=== PATIENT | female | born 1945 | race Caucasian/White ===

== ENCOUNTER 2016-10-31 16:07 | Emergency (ER) | payer OTHER ==
[2016-10-31 16:20] VITALS: TEMP 98.4; BMI 27.4
--- NOTE | 2016-10-31 17:19 | PDOC ---
History of Present Illness - General History Source: Patient Exam Limitations: No Limitations - History of Present Illness Initial Comments: The patient is a 70 yo F with a PMHx significant for prior ear tubs who presents with dizziness since 1pm this afternoon. She states she felt like the room was spinning around her which caused her to fall. She states she was able to brace herself with her arms. She denies head trauma and LOC. 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 She states her doctor a few years ago recommend mastoid surgery which she was unable to do for social reasons. The patient states when she turns her head she gets dizzy. She states she sees Dr. Hurst for ENT. The patient also notes associated nausea. The patient states the dizziness is only exacerbated by moving her head not moving her eyes. She also endorses a sharp pain near her ear at 1pm that lasted a few minutes that has since resolved. The patient denies blood in her vomit. She also notes a sudden onset of chills when her symptoms presented. <Reena Holley - Last Filed: 10/31/16 18:01> - General History Source: Patient Exam Limitations: No Limitations <Erica Johnson - Last Filed: 11/01/16 21:07> - General Chief Complaint: Syncope/Near Syncope Stated Complaint: DIZZINESS Time Seen by Provider: 10/31/16 17:04 Past History <Reena Holley - Last Filed: 10/31/16 18:01> - Past Medical History Anemia: No Asthma: No Cancer: No Cardiac Disorders: No CVA: No COPD: No CHF: No Dementia: No Diabetes: No GI Disorders: No Disorders: No HTN: No Hypercholesterolemia: No Liver Disease: No Seizures: No Thyroid Disease: No Other medical history: DENIES. - Surgical History Abdominal Surgery: No Appendectomy: No Cardiac Surgery: No Cholecystectomy: No Lung Surgery: No Neurologic Surgery: No Orthopedic Surgery: Yes (s/p right carpal tunnel release 1999/R KNEE ARTHROSCPY ) - Immunization History Td Vaccination: (09/16/2008) TDAP Vaccination: (02/09/2016) - Psycho/Social/Smoking Cessation Hx Anxiety: No Suicidal Ideation: No Smoking History: Never smoked Have you smoked in the past 12 months: No Hx Alcohol Use: No Drug/Substance Use Hx: No Substance Use Type: None Hx Substance Use Treatment: No <AlexErica - Last Filed: 11/01/16 21:07> - Past Medical History Allergies/Adverse Reactions: Allergies Allergy/AdvReac Type Severity Reaction Status Date / Time codeine [Codeine] AdvReac Intermediate Vomiting Verified 10/31/16 16:15 ENVIRONMENTAL Allergy Intermediate NASAL Uncoded 10/31/16 16:15 CONGESTION/SNEEZING GOLDENROD Allergy Uncoded 10/31/16 16:15 RAGWEED Allergy Uncoded 10/31/16 16:15 Home Medications: Ambulatory Orders FA/Mv,Ca,Iron,Min/Lycopene/Lut [Centrum Tablet] 1 each PO DAILY 07/17/14 Glucosamine HCl/Chondr Whitt A Na [Osteo Bi-Flex Caplet] 1 each PO DAILY 07/17/14 Ascorbic Acid [Vitamin C] 250 mg PO DAILY 02/09/16 Naproxen Sodium [Aleve] 440 mg PO DAILY 02/09/16 Vit C/Vit E/Lutein/Min/[place]-3 [Ocuvite Softgel] 1 each PO DAILY 02/09/16 Amoxicillin/Potassium Clav [Augmentin 875-125 Tablet] 1 each PO BID #14 tablet 10/31/16 Meclizine HCl [Antivert -] 25 mg PO TID #21 tablet 10/31/16 Review of Systems - Review of Systems Able to Perform ROS?: Yes Comments:: GENERAL/CONSTITUTIONAL: No fever or chills. No weakness. HEAD, EYES, EARS, NOSE AND THROAT: No change in vision. No ear pain or discharge. No sore throat. CARDIOVASCULAR: No chest pain or shortness of breath. RESPIRATORY: No cough, wheezing, or hemoptysis. GASTROINTESTINAL: No nausea, vomiting, diarrhea or constipation. GENITOURINARY: No dysuria, frequency, or change in urination. MUSCULOSKELETAL: No joint or muscle swelling or pain. No neck or back pain. SKIN: No rash NEUROLOGIC: +vertigo No headache, loss of consciousness, or change in strength/sensation. ALLERGIC/IMMUNOLOGIC: No hives or skin allergy. <Reena Holley - Last Filed: 10/31/16 18:01> *Physical Exam - Vital Signs Last Vital Signs Temp Pulse Resp BP Pulse Ox 98.4 F 87 19 148/112 98 10/31/16 16:16 10/31/16 16:16 10/31/16 16:16 10/31/16 16:16 10/31/16 16:50 - Physical Exam Comments: GENERAL: Awake, alert, and fully oriented, in no acute distress HEAD: No signs of trauma EYES: PERRLA, EOMI, sclera anicteric, conjunctiva clear ENT: fluid behind R tympanic membrane, hearing grossly normal, nares patent, oropharynx clear without exudates. Moist mucosa NECK: Normal ROM, supple, no lymphadenopathy, JVD, or masses LUNGS: Breath sounds equal, clear to auscultation bilaterally. No wheezes, and no crackles HEART: Regular rate and rhythm, normal S1 and S2, no murmurs, rubs or gallops ABDOMEN: Soft, nontender, normoactive bowel sounds. No guarding, no rebound. No masses EXTREMITIES: Normal range of motion, no edema. No clubbing or cyanosis. No cords, erythema, or tenderness NEUROLOGICAL: Cranial nerves II through XII grossly intact. Normal speech, normal gait SKIN: Warm, Dry, normal turgor, no rashes or lesions noted. <Reena Holley - Last Filed: 10/31/16 18:01> - Vital Signs Last Vital Signs Temp Pulse Resp BP Pulse Ox 98.4 F 87 19 148/112 98 10/31/16 16:16 10/31/16 16:16 10/31/16 16:16 10/31/16 16:16 10/31/16 16:50 <Erica Johnson - Last Filed: 11/01/16 21:07> Heart Score/ECG Review #1 ECG reviewed & interpreted by me at: 18:23 General ECG Interpretation: Sinus Rhythm, Normal Rate, Normal Intervals, No acute ischemic changes <Erica Johnson - Last Filed: 11/01/16 21:07> ED Treatment Course - LABORATORY CBC & Chemistry Diagram: 10/31/16 17:35 10/31/16 17:35 - ADDITIONAL ORDERS Additional order review: 10/31/16 17:35 RBC 4.36 MCV 88.8 MCHC 34.0 RDW 13.3 MPV 8.5 Neutrophils % 82.5 Lymphocytes % 11.9 Monocytes % 4.2 Eosinophils % 0.7 Basophils % 0.7 <Reena Holley - Last Filed: 10/31/16 18:01> - LABORATORY CBC & Chemistry Diagram: 10/31/16 17:35 10/31/16 17:35 <Erica Johnson - Last Filed: 11/01/16 21:07> Medical Decision Making - Medical Decision Making 10/31/16 17:19 A portion of this note was documented by scribe services under my direction. I have reviewed the details of the note, within reason, and agree with the documentation with the following case summary and management plan written by me. Nursing documentation reviewed and incorporated into medical decision making This is 70 yo F with a history of a "bad right ear" Pt states she has had these issues chronically and has intermittently required tympanostomy tubes Was seen by Dr Hurst in the office He noted fluid behind the ear, placed a drain Her symptoms resolved Today, she developed right ear pain Symptoms are similar to prior (ear pain and vertigo) NEURO: No nystagmus (+) fluid behind right TM Mental status: The patient is oriented x3. Cranial nerves: Cranial nerves II through XII are intact Motor: The upper extremities are 5 over 5 in all muscle groups. The lower extremities are 5 over 5 in all muscle groups. Sensation: Sensation is intact to light touch throughout. Cerebellar: Oqyogb-gugewi-kfiv is normal in both upper extremities. Heel-knee- ramires is normal in both lower extremities. Reflexes: 2+ and symmetric in the upper and lower extremities. Gait: Normal. DD: peripheral vertigo due to chronic middle ear condition, posterior circulation pathology Laboratory Tests 10/31/16 17:35 WBC 7.3 Hgb 13.2 Hct 38.7 Plt Count 226 Neutrophils % 82.5 Lymphocytes % 11.9 Given pt sym 10/31/16 18:[address] Alonzo covering Dr Hurst 10/31/16 18:21 Pt can be discharged to home Pt should be discharged on Antibiotics, and Meclizine Pt should follow up with Dr Hurst in the office Will give Meclizine and re assess vertigo 10/31/16 18:28 10/31/16 18:54 <Erica Johnson - Last Filed: 11/01/16 21:07> *DC/Admit/Observation/Transfer - Attestations Scribe Attestion: Documentation prepared by Reena Holley, acting as medical sales consultant for Erica Johnson MD/DO. <Reena Holley - Last Filed: 10/31/16 18:01> - Discharge Dispostion Admit: No <Erica Johnson - Last Filed: 11/01/16 21:07> Diagnosis at time of Disposition: Vertigo, Fluid collection of middle ear - Discharge Dispostion Disposition: HOME Condition at time of disposition: Stable - Prescriptions Prescriptions: Meclizine HCl [Antivert -] 25 mg PO TID #21 tablet Amoxicillin/Potassium Clav [Augmentin 875-125 Tablet] 1 each PO BID #14 tablet - Referrals Referrals: Sara Pathak MD [Primary Care Provider] - - Patient Instructions Printed Discharge Instructions: Middle Ear Infection, Ear Infections (Middle Ear) (Alternative Therapy), DI for Vertigo Additional Instructions: Ms. Lambert Thank you for coming to the ER today Please take the meclizine for vertigo as prescribed Please take augmentin as prescribed Please call Dr Hurst's office for follow up
[2016-10-31 17:49] LABS: BASOPHIL 0.7 % (0-2.0); EOSINOPHIL 0.7 % (0-4.5); MCH 30.2 pg (25.7-33.7); MEAN CELL VOLUME 88.8 fl (80-96); MEAN PLT VOLUME 8.5 fl (7.5-11.1); NEUTROPHILS 82.5 % (42.8-82.8); PLATELET COUNT 226 K/MM3 (134-434); RDW 13.3 % (11.6-15.6); WHITE BLOOD COUNT 7.3 K/mm3 (4.0-10.0)
[2016-10-31 18:21] LABS: ALBUMIN 4.1 g/dl (3.4-5.0); ANION GAP 9 (8-16); BILIRUBIN,TOTAL 0.6 mg/dL (0.2-1.0); CALCIUM 10.1 mg/dL (8.5-10.1); CO2 28 mmol/L (21-32); CREATININE 0.9 mg/dL (0.55-1.02); GLUCOSE,RANDOM 111 mg/dL (74-106); SGOT/AST 19 U/L (15-37); SGPT/ALT 22 U/L (12-78); TOT PROT 7.1 g/dl (6.4-8.2)
[2016-10-31 18:23] LABS: ALK PHOS 82 U/L (45-117); CPK 104 IU/L (26-192); TROPONIN I < 0.02 ng/ml (0.00-0.05)
[2016-10-31] MEDS ORDERED: MECLIZINE HCL 25 MG TABLET (FP) PO ONE (18:28)
[2016-10-31] MEDS ORDERED: MECLIZINE HCL 25 MG TABLET (FP) ONE (18:33)
[2016-10-31 18:40] VITALS: BP 119/71; PULSE 79
--- NOTE | 2016-11-02 21:44 | EKG ---
Test Reason : Blood Pressure : / mmHG Vent. Rate : 065 BPM Atrial Rate : 065 BPM P-R Int : 176 ms QRS Dur : 088 ms QT Int : 398 ms P-R-T Axes : 034 004 004 degrees QTc Int : 413 ms NORMAL SINUS RHYTHM WHEN COMPARED WITH ECG OF 08-APR-2001 10:56, NONSPECIFIC T WAVE ABNORMALITY NOW EVIDENT IN ANTERIOR LEADS , MAY BE DUE TO LEAD PLACEMENT Confirmed by LETY HAGAN, RASHMI ([id number]) on 11/02/2016 9:43:59 PM Referred By: Confirmed By:RASHMI DAVIDSON MD
== END 2016-10-31 19:34 | disposition home or self-care (01) ==
LOC: JER 16:07
DX: H81.391 Other peripheral vertigo, right ear (principal)
CPT/HCPCS: 36415; 80053; 84484; 85025; 93005; 93010; 99285-25

== ENCOUNTER 2017-10-18 19:51 | Emergency (ER) | payer OTHER ==
[2017-10-18 20:00] VITALS: BP 140/85; PULSE 96; TEMP 98.9; BMI 27.4
[2017-10-18] MEDS ORDERED: CEPHALEXIN MONOHYDRATE 250 MG CAPSULE (FP) PO ONE (20:21)
--- NOTE | 2017-10-18 20:21 | PDOC ---
*Physical Exam - Vital Signs Last Vital Signs Temp Pulse Resp BP Pulse Ox 98.9 F 96 H 15 140/85 98 10/18/17 19:53 10/18/17 19:53 10/18/17 19:53 10/18/17 19:53 10/18/17 19:53 *DC/Admit/Observation/Transfer - Discharge Dispostion Condition at time of disposition: Good - Referrals Referrals: Sara Pathak MD [Primary Care Provider] - - Patient Instructions - Post Discharge Activity
--- NOTE | 2017-10-18 20:21 | PDOC ---
History of Present Illness - General History Source: Patient, Old Records Exam Limitations: No Limitations - History of Present Illness Initial Comments: 10/18/17 20:34 Patient is a 71 year old female with no significant past medical history who presents to the ED with complaints of left hand pain, s/p injury that occured 4 hours prior to ED arrival. Patient reports breaking apart an old toilet with a sledgehammer when she cut her left hand while attempting to catch a falling broken piece. She reports applying peroxide water and a bandaid to the injury before being advised by her friend to come into the ED for further evaluation. Denies chest pain, Sob. Denies nausea, vomiting. Denies contact with sick individuals, out of state travelling. Denies fevers, chills. Denies any other symptoms. Allergies: codeine, Hermann, Ragweed Social history: Lives with . No smoking. No alcohol. No illicit drugs. Surgical history: s/p right carpal tunnel release 1999/R KNEE ARTHROSCOPY 2010 PMD: Dr. Sara Pathak <Jayy Talbot - Last Filed: 10/18/17 20:29> <Maite Ricketts - Last Filed: 10/19/17 01:11> - General Chief Complaint: Laceration Stated Complaint: LEFT PALM LACERATION Time Seen by Provider: 10/18/17 20:13 Past History <Jayy Talbot - Last Filed: 10/18/17 20:29> - Past Medical History Anemia: No Asthma: No Cancer: No Cardiac Disorders: No CVA: No COPD: No CHF: No Dementia: No Diabetes: No GI Disorders: No Disorders: No HTN: No Hypercholesterolemia: No Liver Disease: No Seizures: No Thyroid Disease: No - Surgical History Abdominal Surgery: No Appendectomy: No Cardiac Surgery: No Cholecystectomy: No Lung Surgery: No Neurologic Surgery: No Orthopedic Surgery: Yes (s/p right carpal tunnel release 1999/R KNEE ARTHROSCPY ) - Immunization History Td Vaccination: (09/16/2008) TDAP Vaccination: Yes (02/09/2016) - Suicide/Smoking/Psychosocial Hx Smoking History: Never smoked Have you smoked in the past 12 months: No Hx Alcohol Use: No Drug/Substance Use Hx: No Substance Use Type: None Hx Substance Use Treatment: No <Maite Ricketts - Last Filed: 10/19/17 01:11> - Past Medical History Allergies/Adverse Reactions: Allergies Allergy/AdvReac Type Severity Reaction Status Date / Time codeine [Codeine] AdvReac Intermediate Vomiting Verified 10/18/17 19:55 ENVIRONMENTAL Allergy Intermediate NASAL Uncoded 10/18/17 19:55 CONGESTION/SNEEZING GOLDENROD Allergy Uncoded 10/18/17 19:55 RAGWEED Allergy Uncoded 10/18/17 19:55 Home Medications: Ambulatory Orders FA/Mv,Ca,Iron,Min/Lycopene/Lut [Centrum Tablet] 1 each PO DAILY 07/17/14 Glucosamine/Chondr Whitt A Sod [Osteo Bi-Flex Caplet] 1 each PO DAILY 07/17/14 Naproxen Sodium [Aleve] 440 mg PO DAILY 02/09/16 Vit C/Vit E/Lutein/Min/[place]-3 [Ocuvite Softgel] 1 each PO DAILY 02/09/16 Cephalexin Monohydrate [Keflex -] 250 mg PO Q8H #9 capsule 10/18/17 Review of Systems - Review of Systems Able to Perform ROS?: Yes Comments:: 10/18/17 20:34 GENERAL/CONSTITUTIONAL: No fever or chills. No weakness. HEAD, EYES, EARS, NOSE AND THROAT: No change in vision. No ear pain or discharge. No sore throat. CARDIOVASCULAR: No chest pain or shortness of breath. RESPIRATORY: No cough, wheezing, or hemoptysis. GASTROINTESTINAL: No nausea, vomiting, diarrhea or constipation. GENITOURINARY: No dysuria, frequency, or change in urination. MUSCULOSKELETAL: +Left hand pain. No joint or muscle swelling or pain. No neck or back pain. SKIN: No rash NEUROLOGIC: No headache, vertigo, loss of consciousness, or change in strength/ sensation. ENDOCRINE: No increased thirst. No abnormal weight change. HEMATOLOGIC/LYMPHATIC: No anemia, easy bleeding, or history of blood clots. ALLERGIC/IMMUNOLOGIC: No hives or skin allergy. <Jayy Talbot - Last Filed: 10/18/17 20:29> *Physical Exam - Vital Signs Last Vital Signs Temp Pulse Resp BP Pulse Ox 98.9 F 96 H 15 140/85 98 10/18/17 19:53 10/18/17 19:53 10/18/17 19:53 10/18/17 19:53 10/18/17 19:53 - Physical Exam Comments: 10/18/17 20:34 GENERAL: Awake, alert, and fully oriented, in no acute distress HEAD: No signs of trauma EYES: PERRLA, EOMI, sclera anicteric, conjunctiva clear ENT: Auricles normal inspection, hearing grossly normal, nares patent, oropharynx clear without exudates. Moist mucosa NECK: Normal ROM, supple, no lymphadenopathy, JVD, or masses LUNGS: Breath sounds equal, clear to auscultation bilaterally. No wheezes, and no crackles HEART: Regular rate and rhythm, normal S1 and S2, no murmurs, rubs or gallops ABDOMEN: Soft, nontender, normoactive bowel sounds. No guarding, no rebound. No masses EXTREMITIES: +1 cm square abrasion to the palmar aspect of the left hand Normal range of motion, no edema. No clubbing or cyanosis. No cords, erythema, NEUROLOGICAL: Cranial nerves II through XII grossly intact. Normal speech, normal gait SKIN: Warm, Dry, normal turgor, no rashes or lesions noted. <Jayy Talbot - Last Filed: 10/18/17 20:29> - Vital Signs Last Vital Signs Temp Pulse Resp BP Pulse Ox 98.9 F 96 H 15 140/85 98 10/18/17 19:53 10/18/17 19:53 10/18/17 19:53 10/18/17 19:53 10/18/17 19:53 <Maite Ricketts - Last Filed: 10/19/17 01:11> ED Treatment Course - Medications Given in the ED: ED Medications Discontinued Medications Generic Name Dose Route Start Last Admin Trade Name Freq PRN Reason Stop Dose Admin Cephalexin HCl 250 mg 10/18/17 20:21 10/18/17 20:25 Keflex - PO 10/18/17 20:22 250 mg ONCE ONE Administration <Jayy Talbot - Last Filed: 10/18/17 20:29> Medical Decision Making - Medical Decision Making 10/19/17 01:10 Pt with abrasion to hand. Washed and dressed with surgicel. Home with keflex. FROM of all fingers and thumb; no swelling of the hand and no need for XRAYS. <Maite Ricketts - Last Filed: 10/19/17 01:11> *DC/Admit/Observation/Transfer - Attestations Scribe Attestion: 10/18/17 20:35 Documentation prepared by Jayy Talbot, acting as quality engineer medical device for Maite Ricketts MD. <Jayy Talbot - Last Filed: 10/18/17 20:29> - Discharge Dispostion Decision to Admit order: No <Maite Ricketts - Last Filed: 10/19/17 01:11> Diagnosis at time of Disposition: Abrasion - Discharge Dispostion Disposition: HOME Condition at time of disposition: Good - Prescriptions Prescriptions: Cephalexin Monohydrate [Keflex -] 250 mg PO Q8H #9 capsule - Referrals Referrals: Sara Pathak MD [Primary Care Provider] - - Patient Instructions Printed Discharge Instructions: DI for Abrasion - Post Discharge Activity
[2017-10-18] MEDS ORDERED: CEPHALEXIN MONOHYDRATE 250 MG CAPSULE (FP) ONE (20:24)
== END 2017-10-18 20:30 | disposition home or self-care (01) ==
LOC: FER 19:51
DX: S60.512A Abrasion of left hand, initial encounter (principal); W26.8XXA Contact with other sharp object(s), not elsewhere classified, initial encounter; Y93.89 Activity, other specified; Y92.9 Unspecified place or not applicable
CPT/HCPCS: 99281-25

== ENCOUNTER 2018-02-19 16:39 | Emergency (ER) | payer OTHER ==
[2018-02-19 17:24] LABS: URINE APPEARANCE Clear; URINE BILIRUBIN Negative (NEGATIVE); URINE COLOR Yellow; URINE GLUCOSE (UA) Negative (NEGATIVE); URINE KETONE Trace (NEGATIVE); URINE LEUK ESTERASE 3+ (NEGATIVE); URINE NITRITE Negative (NEGATIVE); URINE PROTEIN Negative (NEGATIVE); URINE UROBILINOGEN 0.2 (0.2-1.0)
[2018-02-19 17:25] LABS: EPI CELLS FEW /HPF; URINE BACTERIA 1+ /hpf (NEGATIVE); URINE RBC 0-2 /hpf (0-3)
[2018-02-19 17:38] VITALS: BP 129/73; PULSE 89; TEMP 98.4; BMI 30.2
[2018-02-19] MEDS ORDERED: IBUPROFEN 600 MG TABLET (FP) PO ONE ×2 (18:23→18:45)
--- NOTE | 2018-02-19 18:26 | PDOC ---
History of Present Illness - General Chief Complaint: Pain Stated Complaint: LEFT FLANK PAIN Time Seen by Provider: 02/19/18 18:08 - History of Present Illness Initial Comments: Melly Lambert is a 72yo woman with no significant medical history who presents with pleuritic left flank v left lower posterior rib pain following a recent URI. She reports that she started having a cough and chest congestion several days after flying home from vacation over [facility]. She notes that many people on the plane were coughing or appeared to have colds. She tried to treat herself at home for a while but eventually went to see her PMD and was treated with azithromycin, which she finished about 10 days ago. Ms Lambert reports that her symptoms improved significantly after the antibiotics but she has continued to have a cough. Starting a day or two ago, Ms Lambert started to have pain along her left lower ribs, posterior and lateral, when she coughed. The pain has worsened and is now a 10/10 and prevents her from either sitting or standing up completely straight. She tried taking 1000mg acetaminophen every 4-6 hours, which helped for a short period of time only, and she tried excedrin (back pain formula?) without improvement in her pain. She additionally tried wearing a support belt, which did help with her symptoms somewhat. Ms Lambert denies any fevers/chills, nausea/vomiting, change in bowel habits, dysuria, urinary frequency or urgency. Her cough is no longer productive though she was initially producing significant sputum. Past History - Past Medical History Allergies/Adverse Reactions: Allergies Allergy/AdvReac Type Severity Reaction Status Date / Time codeine [Codeine] AdvReac Intermediate Vomiting Verified 02/19/18 17:35 ENVIRONMENTAL Allergy Intermediate NASAL Uncoded 10/18/17 19:55 CONGESTION/SNEEZING GOLDENROD Allergy Uncoded 10/18/17 19:55 RAGWEED Allergy Uncoded 10/18/17 19:55 Home Medications: Ambulatory Orders FA/Mv,Ca,Iron,Min/Lycopene/Lut [Centrum Tablet] 1 each PO DAILY 07/17/14 Glucosamine/Chondr Whitt A Sod [Osteo Bi-Flex Caplet] 1 each PO DAILY 07/17/14 Naproxen Sodium [Aleve] 440 mg PO DAILY 02/09/16 Vit C/Vit E/Lutein/Min/[place]-3 [Ocuvite Softgel] 1 each PO DAILY 02/09/16 Levofloxacin [Levaquin] 750 mg PO DAILY #7 tablet 02/19/18 Anemia: No Asthma: No Cancer: No Cardiac Disorders: No CVA: No COPD: No CHF: No Dementia: No Diabetes: No GI Disorders: No Disorders: No HTN: No Hypercholesterolemia: No Liver Disease: No Seizures: No Thyroid Disease: No - Surgical History Abdominal Surgery: No Appendectomy: No Cardiac Surgery: No Cholecystectomy: No Lung Surgery: No Neurologic Surgery: No Orthopedic Surgery: Yes (s/p right carpal tunnel release 1999/R KNEE ARTHROSCPY ) - Immunization History Td Vaccination: (09/16/2008) TDAP Vaccination: Yes (02/09/2016) - Suicide/Smoking/Psychosocial Hx Smoking History: Never smoked Have you smoked in the past 12 months: No Hx Alcohol Use: No Drug/Substance Use Hx: No Substance Use Type: None Hx Substance Use Treatment: No Review of Systems - Review of Systems Comments:: General: No fevers, no chills, no weight or appetite change, no malaise HEENT: No changes in vision, no changes in hearing, no congestion, no sore throat CV: No chest pain, no palpitations, no LE edema Pulm: No SOB, no wheezing. +cough, recent URI GI: No nausea or vomiting, no change in bowel habits, no melena : No frequency, no urgency, no dysuria Musc: No back pain, no joint swelling, no recent injury Skin: No rash, no lesions, no erythema Endo: No excessive thirst, no heat/cold intolerance Heme: No unusual bruising or bleeding, no swollen glands Neuro: No syncope, no numbness/tingling, no focal weakness Vasc: No claudication Psych: No recent change in mood, no SI or HI *Physical Exam - Vital Signs Last Vital Signs Temp Pulse Resp BP Pulse Ox 98.4 F 89 18 129/73 97 02/19/18 16:40 02/19/18 16:40 02/19/18 16:40 02/19/18 16:40 02/19/18 16:40 - Physical Exam Comments: General: Comfortable, no acute distress HEENT: PERRL, EOMI, MMM, voice normal, normal neck ROM Cards: RRR, no murmur appreciated Pulm: Comfortable on room air, clear to auscultation bilaterally. No wheezing or crackles appreciated. Chest wall: TTP along left posterior and lateral ribs Abd: Soft, nontender, nondistended : No CVA tenderness Ext: Atraumatic. No LE edema. ROM intact. Strength 5/5 and equal bilaterally Vasc: Extremities WWP. Palpable radial and pedal pulses bilaterally Skin: Normal color, no rashes or lesions Neuro: A&Ox3, CN grossly intact, normal speech, motor/sensory grossly intact and symmetric Psych: Mood appropriate to situation Moderate Sedation - Procedure Monitoring Vital Signs: Procedure Monitoring Vital Signs Temperature 98.4 F 02/19/18 16:40 Pulse Rate 89 02/19/18 16:40 Respiratory Rate 18 02/19/18 16:40 Blood Pressure 129/73 02/19/18 16:40 O2 Sat by Pulse Oximetry (%) 97 02/19/18 16:40 ED Treatment Course - ADDITIONAL ORDERS Additional order review: Laboratory Results 02/19/18 16:50 Urine Color Yellow Urine Appearance Clear Urine pH 5.0 Ur Specific [place] 1.025 Urine Protein Negative Urine Glucose (UA) Negative Urine Ketones Trace Urine Blood Negative Urine Nitrite Negative Urine Bilirubin Negative Urine Urobilinogen 0.2 Ur Leukocyte Esterase 3+ H Urine RBC 0-2 Urine WBC 10-20 Ur Epithelial Cells Few Urine Bacteria 1+ Medical Decision Making - Medical Decision Making 02/19/18 18:34 Melly Lambert is an otherwise healthy 72yo woman who presents with pleuritic left flank and posterior rib pain following a recent respiratory infection. - Most likely musculoskeletal due to frequent coughing. However due to persistent cough need to r/o pneumonia. Could also have a fractured rib secondary to coughing, especially given age and gender. Pain in left posterior back and flank could also be kidney stone. Pyelonephritis less likely given no fevers or systemic symptoms. - UA sent on arrival. Appears positive for UTI, will send culture. - Xrays of chest to evaluate for pneumonia. Rib xray to r/o fracture - 600mg ibuprofen for pain 02/19/18 18:57 - Xrays negative for pneumonia or fracture - Will discharge home with levaquin for UTI and empirically for possible pneumonia given continued cough - Discussed home care and follow up with Ms Lambert at length. - Discharge home. Seen and discussed with Dr Knowles. Crystal Parmar PGY1 *DC/Admit/Observation/Transfer Diagnosis at time of Disposition: UTI (urinary tract infection), Rib pain on left side - Discharge Dispostion Disposition: HOME Condition at time of disposition: Stable Decision to Admit order: No - Referrals Referrals: Sara Pathak MD [Primary Care Provider] - - Patient Instructions Printed Discharge Instructions: DI for Rib Contusion, DI for Urinary Tract Infection (UTI) Additional Instructions: Discharge Instructions: You were seen in the emergency department for left rib pain. You were found to have a urinary tract infection and prescribed antibiotics. These antibiotics will also treat any continued respiratory infection that is contributing to your cough. Home Care: - Take the prescribed antibiotic (levofloxacin) daily for 7 days. Take the entire prescription. Do not stop taking the antibiotic early, even if you feel better. - You may take ibuprofen (Motrin or Advil) 600mg every 6-8 hours as needed for pain. You may also take naproxen (Aleve) 220-440mg twice dailiy. Pick only one of these medications; do not take both. Take the medication with food to help prevent upset stomach. - Take the largest breath you can several times per hour. This will fully expand your lungs and help prevent pneumonia - You may use the prescribed albuterol inhaler 2 puffs as needed for coughing or shortness of breath. - You may use lidocaine patches (4% lidocaine) or any pain patch over the infected area. Follow Up: - Make an appointment to see your primary doctor within the next week. Early next week on Thursday or Thursday would be best. - Seek immediate medical care if you have fevers to 101F, severe shortness of breath, worsening cough, increased sputum production, or have any medical emergency. - Post Discharge Activity
--- NOTE | 2018-02-19 18:38 | PDOC ---
Attending Attestation - Resident Resident Name: Crystal Parmar - ED Attending Attestation I have performed the following: I have examined & evaluated the patient, The case was reviewed & discussed with the resident, I agree w/resident's findings & plan, Exceptions are as noted <Nyla Knowles - Last Filed: 02/19/18 18:38> - HPI HPI: 02/19/18 18:42 The patient is a 72 year old female, with no significant PMH, who presents to the emergency department with a viral upper respiratory infection that began approximately a few days after . The patient states she was traveling and came in contact with a lot of passengers who were coughing and sneezing during the flight. The patient states since then she has been coughing and her PCP prescribed her Z-Pack for 10 days, temporary relief was noticed. The patient complains cough has progressively worsened within the past few days and endorses associated symptoms of left lateral posterior pain and dry sputum. Pain is exacerbated with deep inspiration and cough. The patient denies shortness of breath, headache and dizziness. Denies fever, chills, nausea, vomit, diarrhea and constipation. Allergies: codeine Past surgical history: Orthopedic Surgery ( right carpal tunnel release 1999/ KNEE ARTHROSCOPY) Social history: None reported PCP: Sara Pathak Documentation prepared by Josue Pina, acting as auditor medical claims for Nyla Knowles MD. - Physicial Exam PE: 02/19/18 19:09 ADULT EXAM GENERAL: Awake, alert, and fully oriented, in no acute distress HEAD: No signs of trauma ENT: Auricles normal inspection, hearing grossly normal, nares patent, oropharynx clear without exudates. Moist mucosa LUNGS: Breath sounds equal, clear to auscultation bilaterally. No wheezes, and no crackles HEART: Regular rate and rhythm, normal S1 and S2, no murmurs, rubs or gallops ABDOMEN: Soft, nontender, normoactive bowel sounds. No guarding, no rebound. No masses EXTREMITIES: +Left posterior flank tenderness. No step off. Normal range of motion, no edema. No clubbing or cyanosis. No cords, erythema. NEUROLOGICAL: No spinal tenderness. Cranial nerves II through XII grossly intact. Normal speech. SKIN: Warm, Dry, normal turgor, no rashes or lesions noted - Medical Decision Making 02/19/18 19:13 Differential pneumonia vs brochitis vs rib fracture, UTI pylo, upper back strain. Motrin was given for pain control. Chest Xray negative. Prescribed Levaquin and patient will follow up with PCP later next week. <Josue Pina - Last Filed: 02/19/18 19:19>
== END 2018-02-19 19:13 | disposition home or self-care (01) ==
LOC: FER 16:39
DX: N39.0 Urinary tract infection, site not specified (principal); R07.81 Pleurodynia
CPT/HCPCS: 71046-TC-FY; 71101-TC-LT-FY; 81003; 81015; 87086; 87186; 99283-25

== ENCOUNTER 2018-04-05 15:50 | Inpatient (IN) | payer OTHER ==
--- NOTE | 2018-04-05 16:38 | PDOC ---
History of Present Illness - General Chief Complaint: Rectal Bleed Stated Complaint: BLOODY DIARRHEA Time Seen by Provider: 04/05/18 16:16 - History of Present Illness Initial Comments: 04/05/18 16:54 72 years old no significant past medical history takes Aleve daily for chronic knee pain presents to the ED with one-week history of hematochezia. Patient describes between 1-4 episodes a day starting last Thursday of bright red bloody bowel movements associated with crampy abdominal discomfort and palpitations fatigue weakness and dizziness. Started taking Pepto-Bismol on Thursday today stool was black. Symptoms are moderate persistent constant no exacerbating or alleviating factors. Past History - Past Medical History Allergies/Adverse Reactions: Allergies Allergy/AdvReac Type Severity Reaction Status Date / Time codeine [Codeine] AdvReac Intermediate Vomiting Verified 04/05/18 16:17 ENVIRONMENTAL Allergy Intermediate NASAL Uncoded 04/05/18 16:17 CONGESTION/SNEEZING GOLDENROD Allergy Uncoded 04/05/18 16:17 RAGWEED Allergy Uncoded 04/05/18 16:17 Home Medications: Ambulatory Orders FA/Mv,Ca,Iron,Min/Lycopene/Lut [Centrum Tablet] 1 each PO DAILY 07/17/14 Glucosamine/Chondr Whitt A Sod [Osteo Bi-Flex Caplet] 1 each PO DAILY 07/17/14 Naproxen Sodium [Aleve] 440 mg PO DAILY 02/09/16 Vit C/Vit E/Lutein/Min/[place]-3 [Ocuvite Softgel] 1 each PO DAILY 02/09/16 Ascorbate Calcium [Vitamin C] 500 mg PO DAILY 04/05/18 Bismuth Subsalicylate [Pepto-Bismol -] 30 ml PO BID 04/05/18 Anemia: No Asthma: No Cancer: No Cardiac Disorders: No CVA: No COPD: No CHF: No Dementia: No Diabetes: No GI Disorders: No Disorders: No HTN: No Hypercholesterolemia: No Liver Disease: No Seizures: No Thyroid Disease: No - Surgical History Abdominal Surgery: No Appendectomy: No Cardiac Surgery: No Cholecystectomy: No Lung Surgery: No Neurologic Surgery: No Orthopedic Surgery: Yes (s/p right carpal tunnel release 1999/R KNEE ARTHROSCPY ) - Immunization History Td Vaccination: (09/16/2008) TDAP Vaccination: Yes (02/09/2016) - Suicide/Smoking/Psychosocial Hx Smoking History: Never smoked Have you smoked in the past 12 months: No Hx Alcohol Use: No Drug/Substance Use Hx: No Substance Use Type: None Hx Substance Use Treatment: No Review of Systems - Review of Systems Comments:: 04/05/18 16:54 ROS: A complete review of 10 out of 10 review of systems is taken and is negative apart from what is previously mentioned below and in the HPI. *Physical Exam - Physical Exam Comments: 04/05/18 16:54 Vitals: Triage Vital signs reviewed General Appearance: no acute distress, well nourished well developed, Head: Atraumatic, Neck: Supple;No Nucal rigidity Chest Wall: Nontender Cardiac: Regular rate and rhythym, no murmurs, no rubs, no gallops, Lungs: Clear to auscultation bilateral, good air movement bilaterally, Abdomen: Soft, non distended, normal bowel sounds, non tender to palpation Rectal: Black tarry stool on rectal exam Extremities: Full range of motion to all extremities, no cyanosis, clubbing, or edema Skin: Warm and dry, no rashes or lesions, no rash, no petechiae Psych: normal mood, normal affect ED Treatment Course - LABORATORY CBC & Chemistry Diagram: 04/05/18 16:50 04/05/18 16:50 Medical Decision Making - Medical Decision Making 04/05/18 19:06 One-week history of bright red blood per rectum drop in hemoglobin from 13.7- 8.7 today was dark and melanotic the patient also had recent Pepto-Bismol use her stool was guaiac negative per the lab Gastroenterology Dr. Ferrara is been consult did he will see the patient in the interim she was written for Protonix bolus and drip We'll admit to medicine for further management. *DC/Admit/Observation/Transfer Diagnosis at time of Disposition: GI bleed Qualifiers: GI bleed type/associated pathology: unspecified gastrointestinal hemorrhage type Qualified Code(s): K92.2 - Gastrointestinal hemorrhage, unspecified - Discharge Dispostion Condition at time of disposition: Good Decision to Admit order: Yes - Referrals Referrals: Sara Pathak MD [Primary Care Provider] - - Patient Instructions - Post Discharge Activity
[2018-04-05 17:12] LABS: BASO % 0.7 % (0-2.0); EOS % 2.6 % (0-4.5); HEMATOCRIT 26.4 % (32.4-45.2); HEMOGLOBIN 8.7 GM/dl (10.7-15.3); LYMPH % 25.2 % (8-40); MCHC 32.9 g/dl (32.0-36.0); MEAN CELL VOLUME 91.2 fl (80-96); MONO % 8.4 % (3.8-10.2); NEUT % 63.1 % (42.8-82.8); PLATELET COUNT 283 K/MM3 (134-434); RBC 2.89 M/mm3 (3.60-5.2); RDW 13.9 % (11.6-15.6); WHITE BLOOD COUNT 6.5 K/mm3 (4.0-10.8)
[2018-04-05 17:21] LABS: ALBUMIN 4.1 g/dl (3.4-5.0); ALK PHOS 68 U/L (45-117); ANION GAP 9 MMOL/L (8-16); BILIRUBIN,TOTAL 0.7 mg/dl (0.2-1); BLOOD UREA NITROGEN 22 mg/dl (7-18); CALCIUM 9.6 mg/dl (8.5-10); CHLORIDE 106 mmol/L (98-107); CO2 23 mmol/L (21-32); CREATININE 0.9 mg/dl (0.55-1.3); GLUCOSE,RANDOM 102 mg/dl (74-106); POTASSIUM 3.9 mmol/L (3.5-5.1); SGOT/AST 19 U/L (15-37); SGPT/ALT 13 U/L (13-61); SODIUM 138 mmol/L (136-145); TOT PROT 6.3 g/dl (6.4-8.2)
[2018-04-05 17:31] LABS: INR 1.04 (0.82-1.09); PROTHROMBIN TIME (PATIENT) 11.6 SEC (10.2-13.0)
[2018-04-05] MEDS ORDERED: PANTOPRAZOLE SODIUM 40 MG VIAL IVPUSH ONE (18:08)
[2018-04-05 18:09] LABS: ACTIVATED PTT 24.4 SECONDS (25.2-36.5)
[2018-04-05] MEDS ORDERED: PANTOPRAZOLE SODIUM 40 MG VIAL ONE (18:16)
[2018-04-05] MEDS: PANTOPRAZOLE SODIUM 80 MG in SODIUM CHLORIDE 100 ML IVPB SCH (18:30)
--- NOTE | 2018-04-05 18:50 | HP ---
CHIEF COMPLAINT: PCP: HISTORY OF PRESENT ILLNESS: Seen and examined; this is a 72 y/o CF with a PMH of NSAID use QD 2/2 OA and no other chronic medical problems; she presents from home with complaints likely representing GIB (suspecting upper). She had several episodes of BRBPR starting on thursday (3-4) and some dyspepsia associated; she developed melena around thursday and was noted to have palpitations, be lightheaded, some transient SOB. She had a colonoscopy >5 yrs ago that she tells me was only significant for hemorrhoids. Interestingly, before the melena started she took pepto bismol on thursday which may have caused change in stool color. Since then she has had no further BRBPR. Aformentioned sx actually improved with time. She was initially hesistant to stay inpatient but after discussion with ER staff and myself is amiable to inpatient treatment and monitoring. GI was called by ER and has assessed the patient; appreciate expert opinion; the patient will require EGD and colonoscopy. She will be monitored on the floor. She initially (last week) was having loose BM with the blood but they have since become more formed. No abdominal pain, consitutional sx, fevers, etc. Recent Travel: None PAST MEDICAL HISTORY: OA, hemorrhoids PAST SURGICAL HISTORY: Colonoscopy Social History: Denies alcohol, tobacco, and drug abuse Family History: Asked and noncontributory Allergies codeine [Codeine] Adverse Reaction (Intermediate, Verified 04/05/18 16:17) Vomiting DIZZINESS ENVIRONMENTAL Allergy (Intermediate, Uncoded 04/05/18 16:17) NASAL CONGESTION/SNEEZING GOLDENROD Allergy (Uncoded 04/05/18 16:17) RAGWEED Allergy (Uncoded 04/05/18 16:17) HOME MEDICATIONS: Home Medications Medication Instructions Recorded FA/Mv,Ca,Iron,Min/Lycopene/Lut 1 each PO DAILY 07/17/14 [Centrum Tablet] Glucosamine/Chondr Whitt A Sod [Osteo 1 each PO DAILY 07/17/14 Bi-Flex Caplet] Naproxen Sodium [Aleve] 440 mg PO DAILY 02/09/16 Vit C/Vit E/Lutein/Min/[place]-3 1 each PO DAILY 02/09/16 [Ocuvite Softgel] Ascorbate Calcium [Vitamin C] 500 mg PO DAILY 04/05/18 Bismuth Subsalicylate 30 ml PO BID 04/05/18 [Pepto-Bismol -] REVIEW OF SYSTEMS 10 sys ROS done and negative aside from HPI PHYSICAL EXAMINATION Vital Signs - 24 hr 04/05/18 16:00 Temperature 98.8 F Pulse Rate 100 H Respiratory 18 Rate Blood Pressure 116/78 O2 Sat by Pulse 100 Oximetry (%) GENERAL: Awake, alert, and fully oriented, in no acute distress. HEAD: Normal with no signs of trauma. EYES: Pupils equal, round and reactive to light, extraocular movements intact EARS, NOSE, THROAT: Ears normal, nares patent NECK: Normal range of motion, supple without lymphadenopathy, JVD, or masses. LUNGS: Breath sounds equal, clear to auscultation bilaterally. No wheezes, and no crackles HEART: Regular rate and rhythm, normal S1 and S2 without murmur, rub or gallop. ABDOMEN: Soft, nontender, not distended, normoactive bowel sounds MUSCULOSKELETAL: Normal range of motion at all joints. No bony deformities or tenderness. No CVA tenderness. NEUROLOGICAL: Cranial nerves II-XII intact. Normal speech. Normal gait. PSYCHIATRIC: Cooperative. Good eye contact. Appropriate mood and affect. SKIN: Warm, dry, normal turgor, no rashes or lesions noted, normal capillary refill. Laboratory Results - last 24 hr 04/05/18 04/05/18 04/05/18 16:40 16:50 16:50 WBC 6.5 RBC 2.89 L Hgb 8.7 L Hct 26.4 L D MCV 91.2 MCH 30.0 MCHC 32.9 RDW 13.9 D Plt Count 283 MPV 8.0 Absolute Neuts (auto) 4.2 Neutrophils % 63.1 Lymphocytes % 25.2 Monocytes % 8.4 Eosinophils % 2.6 Basophils % 0.7 PT with INR 11.6 INR 1.04 PTT (Actin FS) 24.4 L Sodium Potassium Chloride Carbon Dioxide Anion Gap BUN Creatinine Creat Clearance w eGFR Random Glucose Calcium Total Bilirubin AST ALT Alkaline Phosphatase Total Protein Albumin Stool Occult Blood Negative 04/05/18 16:50 WBC RBC Hgb Hct MCV MCH MCHC RDW Plt Count MPV Absolute Neuts (auto) Neutrophils % Lymphocytes % Monocytes % Eosinophils % Basophils % PT with INR INR PTT (Actin FS) Sodium 138 Potassium 3.9 Chloride 106 Carbon Dioxide 23 Anion Gap 9 BUN 22 H Creatinine 0.9 Creat Clearance w eGFR > 60 Random Glucose 102 Calcium 9.6 Total Bilirubin 0.7 AST 19 ALT 13 Alkaline Phosphatase 68 Total Protein 6.3 L Albumin 4.1 Stool Occult Blood ASSESSMENT/PLAN: Patient is a 72 y/o CF presenting with 6 days of BRBPR that evolved into melanotic-appearing stool after taking pepto bismol; does have a lower H/H than baseline. Interestingly, with negative FOBT. Admitting to medicine service with GI consultation. 1) Acute GIB -Ultimate management per GI service; appreciate their input in the management of this complicated patient. -NPO; prep for scope. IV protonix. Trend CBC. Avoid AC. -Monitor for further bleed; transfuse PRN. -Source is unclear but need to suspect UGIB given NSAID hx alongside possible lower source. 2) OA with chronic NSAID use -Recommended stopping NSAIDs -OP management with PCP 3) Normocytic Anemia -May be due to acute/subacute blood loss. -Per #1; checking anemia workup FENA -LR@75 -PRN replete -NPO -As tolerated Full Code
[2018-04-05] MEDS ORDERED: LACTATED RINGERS SOLUTION 1,000 ML/1,000 ML INFUS.BAG IV SCH (19:00)
[2018-04-05 19:12] LABS: HEMATOCRIT 23.9 % (32.4-45.2); MCH 30.6 pg (25.7-33.7); MCHC 33.5 g/dl (32.0-36.0); MEAN CELL VOLUME 91.3 fl (80-96); PLATELET COUNT 278 K/MM3 (134-434); RBC 2.62 M/mm3 (3.60-5.2); RDW 14.3 % (11.6-15.6); WHITE BLOOD COUNT 6.3 K/mm3 (4.0-10.8)
--- NOTE | 2018-04-05 19:41 | PN ---
Progress Note (short form) - Note Progress Note: Patient seen and chart/labs reviewed with consult dictated. Patient admitted with history of BRB and clots x several days - acute onset Took Peptobismol to stop the frequent BMs and subsequently developed black stool. No hx of PUD but does take Aleve for arthritis Hx of LGI bleed 5-6 years ago with colonoscopy at [facility] reported to show hemorrhoids (per patient) Admitted with Hct 24-25% and weakness; no further BRBPR. Suspect LGI bleed initially ?diverticular source; color of stool altered by PeptoBismol? Cannot r/o UGI bleed in view of black stool, use of Aleve and slightly elevated BUN To monitor closely and prep for both EGD and colonoscopy in am
[2018-04-05 19:43] LABS: ALBUMIN 3.7 g/dl (3.4-5.0); ALK PHOS 67 U/L (45-117); ANION GAP 10 MMOL/L (8-16); BILIRUBIN,TOTAL 0.5 mg/dl (0.2-1); BLOOD UREA NITROGEN 20 mg/dl (7-18); CALCIUM 9.2 mg/dl (8.5-10); CHLORIDE 107 mmol/L (98-107); CO2 21 mmol/L (21-32); CREATININE 0.9 mg/dl (0.55-1.3); GLUCOSE,RANDOM 100 mg/dl (74-106); POTASSIUM 3.9 mmol/L (3.5-5.1); SGOT/AST 20 U/L (15-37); SGPT/ALT 13 U/L (13-61); SODIUM 138 mmol/L (136-145); TOT PROT 5.9 g/dl (6.4-8.2)
--- NOTE | 2018-04-05 20:18 | CONS ---
DATE OF CONSULTATION: 04/05/2018 Asked to evaluate this 72-year-old female admitted with a GI bleed and anemia. The patient is a 72-year-old female who has been generally healthy and active. She does have a history of arthritis and does take Aleve on occasion, ? more frequently. She has a history of a lower GI bleed 5-6 years ago; for which, she was apparently admitted at [facility] with a colonoscopy according to the patient showing only hemorrhoids. She has regular bowel movements daily, but last week, developed the acute onset of bright red blood per rectum along with some nonspecific abdominal discomfort. The patient subsequently had bleeding over the next several days and took Pepto-Bismol to hopefully reduce the frequency of her bowel movements. Her stools became somewhat black, and the patient is admitted via the emergency room today with black stool, lightheadedness, and fatigue. She denies any prior history of peptic ulcer disease, has no epigastric pain, nausea, or vomiting. MEDICATIONS: Her pre-hospital medications include Aleve, vitamins, and a multivitamin along with glucosamine. FAMILY HISTORY: There is no family history of GI illness or malignancy. SOCIAL HISTORY: The patient is a non-smoker, non-drinker. At the time of admission, she had stable blood pressure, 116/78, but a mild tachycardia and was afebrile. Her initial hemoglobin was 8.7 and hematocrit 26.4, approximately 10 points lower than her baseline. A repeat count has a hemoglobin of 8 and hematocrit of 23.9, white count of 6.3, and her red cell indices are normal. The patient's chemistry panel included normal electrolytes with a BUN of 22 and a creatinine of 0.9. Her INR was 1.04. The patient denies any abdominal pain at the present time, but does feel somewhat weak. PHYSICAL EXAMINATION: General: She is a well-developed, well-nourished female with slightly pale conjunctiva. No icterus. Lungs: Clear. Cardiac: Regular rate and rhythm. Abdomen: Soft, flat. Normoactive bowel sounds. No tenderness. Patient with GI bleeding, initially thought to be lower due to the bright red blood and clots per rectum. However, over the past several days, she has had black stool which may be a reflection of her use of Pepto-Bismol rather than actually an upper GI bleed. However, she does use Aleve on a regular basis and cannot exclude peptic disease/upper GI bleeding. At the present time, she is being monitored closely, has been started on a proton pump inhibitor and has packed red blood cells in the blood bank to be used as needed. She will be started on a clear-liquid diet with arrangements to be made for both upper endoscopy and colonoscopy tomorrow if stable. Will follow. CLAIRE CORNEJO M.D. TAHIR/[id number]
[2018-04-05] MEDS ORDERED: PEG/ELECTROLYTES (NULYTELY) 4,000 ML BOTTLE PO ONE (21:15)
[2018-04-05 22:49] VITALS: BMI 26.2
[2018-04-06 02:24] LABS: HEMATOCRIT 22.9 % (32.4-45.2); HEMOGLOBIN 7.9 GM/dL (10.7-15.3); MCHC 34.5 g/dl (32.0-36.0); PLATELET COUNT 235 K/MM3 (134-434); RBC 2.55 M/mm3 (3.60-5.2); RDW 14.4 % (11.6-15.6); WHITE BLOOD COUNT 5.7 K/mm3 (4.0-10.0)
[2018-04-06] MEDS: PANTOPRAZOLE SODIUM 80 MG in SODIUM CHLORIDE 100 ML IVPB SCH (04:00)
[2018-04-06 05:23] VITALS: TEMP 98.5
--- NOTE | 2018-04-06 07:36 | PN ---
Physical Exam: SUBJECTIVE: Patient seen and examined OBJECTIVE: Vital Signs Period Temp Pulse Resp BP Sys/Miles Pulse Ox Last 24 Hr 98.4 F-98.8 F 78-100 16-20 112-135/57-78 97-100 GENERAL: The patient is awake, alert, and fully oriented, in no acute distress. HEAD: Normal with no signs of trauma. EYES: PERRL, extraocular movements intact, sclera anicteric, conjunctiva clear. No ptosis. ENT: Ears normal, nares patent, oropharynx clear without exudates, moist mucous membranes. NECK: Trachea midline, full range of motion, supple. LUNGS: Breath sounds equal, clear to auscultation bilaterally, no wheezes, no crackles, no accessory muscle use. HEART: Regular rate and rhythm, S1, S2 without murmur, rub or gallop. ABDOMEN: Soft, nontender, nondistended, normoactive bowel sounds, no guarding, no rebound, no hepatosplenomegaly, no masses. EXTREMITIES: 2+ pulses, warm, well-perfused, no edema. NEUROLOGICAL: Cranial nerves II through XII grossly intact. Normal speech, gait not observed. PSYCH: Normal mood, normal affect. SKIN: Warm, dry, normal turgor, no rashes or lesions noted Laboratory Results - last 24 hr 04/05/18 04/05/18 04/05/18 16:40 16:50 16:50 WBC 6.5 RBC 2.89 L Hgb 8.7 L Hct 26.4 L D MCV 91.2 MCH 30.0 MCHC 32.9 RDW 13.9 D Plt Count 283 MPV 8.0 Absolute Neuts (auto) 4.2 Neutrophils % 63.1 Lymphocytes % 25.2 Monocytes % 8.4 Eosinophils % 2.6 Basophils % 0.7 ESR Retic Count PT with INR 11.6 INR 1.04 PTT (Actin FS) 24.4 L Sodium Potassium Chloride Carbon Dioxide Anion Gap BUN Creatinine Creat Clearance w eGFR Random Glucose Calcium Ferritin Total Bilirubin AST ALT Alkaline Phosphatase C-Reactive Protein Total Protein Albumin Stool Occult Blood Negative Blood Type Antibody Screen Crossmatch 04/05/18 04/05/18 04/05/18 16:50 16:50 17:00 WBC RBC Hgb Hct MCV MCH MCHC RDW Plt Count MPV Absolute Neuts (auto) Neutrophils % Lymphocytes % Monocytes % Eosinophils % Basophils % ESR Retic Count PT with INR INR PTT (Actin FS) Sodium 138 Potassium 3.9 Chloride 106 Carbon Dioxide 23 Anion Gap 9 BUN 22 H Creatinine 0.9 Creat Clearance w eGFR > 60 Random Glucose 102 Calcium 9.6 Ferritin Total Bilirubin 0.7 AST 19 ALT 13 Alkaline Phosphatase 68 C-Reactive Protein Total Protein 6.3 L Albumin 4.1 Stool Occult Blood Blood Type B POSITIVE B POSITIVE Antibody Screen Negative Crossmatch See Detail 04/05/18 04/05/18 04/05/18 19:00 19:00 19:00 WBC 6.3 RBC 2.62 L Hgb 8.0 L Hct 23.9 L MCV 91.3 MCH 30.6 MCHC 33.5 RDW 14.3 Plt Count 278 MPV 8.0 Absolute Neuts (auto) Neutrophils % Lymphocytes % Monocytes % Eosinophils % Basophils % ESR 18 Retic Count PT with INR INR PTT (Actin FS) Sodium 138 Potassium 3.9 Chloride 107 Carbon Dioxide 21 Anion Gap 10 BUN 20 H Creatinine 0.9 Creat Clearance w eGFR > 60 Random Glucose 100 Calcium 9.2 Ferritin Total Bilirubin 0.5 AST 20 ALT 13 Alkaline Phosphatase 67 C-Reactive Protein < 0.3 Total Protein 5.9 L Albumin 3.7 Stool Occult Blood Blood Type Antibody Screen Crossmatch 04/05/18 04/05/18 04/06/18 19:04 19:04 01:30 WBC 5.7 RBC 2.55 L Hgb 7.9 L Hct 22.9 L D MCV 90.0 MCH 31.0 MCHC 34.5 RDW 14.4 Plt Count 235 MPV 8.0 Absolute Neuts (auto) Neutrophils % Lymphocytes % Monocytes % Eosinophils % Basophils % ESR Retic Count 3.87 H PT with INR INR PTT (Actin FS) Sodium Potassium Chloride Carbon Dioxide Anion Gap BUN Creatinine Creat Clearance w eGFR Random Glucose Calcium Ferritin 42.5 Total Bilirubin AST ALT Alkaline Phosphatase C-Reactive Protein Total Protein Albumin Stool Occult Blood Blood Type Antibody Screen Crossmatch Active Medications Generic Name Dose Route Start Last Admin Trade Name Freq PRN Reason Stop Dose Admin Pantoprazole Sodium 80 mg/ 100 mls @ 10 mls/hr 04/05/18 18:15 04/06/18 04:00 Sodium Chloride IVPB 10 mls/hr Q10H PHILIP Administration 8 MG/HR Lactated Ringer's 1,000 ml in 1,000 mls @ 75 mls/hr 04/05/18 19:00 04/05/18 22:54 Lactated Ringers Solution IV 75 mls/hr ASDIR [facility] Administration ASSESSMENT/PLAN:
[2018-04-06 08:44] LABS: HEMATOCRIT 27.9 % (32.4-45.2); MCH 29.2 pg (25.7-33.7); MCHC 32.2 g/dl (32.0-36.0); MEAN CELL VOLUME 90.8 fl (80-96); MEAN PLT VOLUME 7.8 fl (7.5-11.1); PLATELET COUNT 276 K/MM3 (134-434); RBC 3.07 M/mm3 (3.60-5.2); RDW 13.7 % (11.6-15.6); WHITE BLOOD COUNT 5.1 K/mm3 (4.0-10.8)
[2018-04-06 11:07] VITALS: PULSE 81
[2018-04-06] MEDS ORDERED: LIDOCAINE HCL/PF 2% SDV 5ML VIAL ONE (11:46)
[2018-04-06] MEDS ORDERED: PROPOFOL 20 ML ONE ×3 (11:46)
--- NOTE | 2018-04-06 12:21 | PN ---
Progress Note (short form) - Note Progress Note: Upper endoscopy and colonoscopy performed with reports in chart. EGD normal Colonoscopy notable for few diverticuli in ascending and sigmoid regions - suspect recent diverticular bleed (now stopped) Hct and vital signs stable. Would advance to regular diet and discharge home when stable per Medicine (no signs of bleeding at present) Will need followup Hct as outpatient and would have patient avoid use of PeptoBismol, ASA and NSAIDS.
--- NOTE | 2018-04-06 13:50 | DS ---
Physical Exam: SUBJECTIVE: Patient seen and examined. Feeling much better since transfusion. Tolerated upper and lower GI scoping. No further bleeding. Denies pain. Tolerating regular food. OBJECTIVE: Vital Signs Period Temp Pulse Resp BP Sys/Miles Pulse Ox Last 24 Hr 98.4 F-98.8 F 78-100 16-20 105-135/55-78 97-100 PHYSICAL EXAM GENERAL: The patient is awake, alert, and fully oriented, in no acute distress. LUNGS: CTA HEART: Regular rate and rhythm, S1, S2 ABDOMEN: Soft, nontender, nondistended EXTREMITIES: 2+ pulses, warm, well-perfused, no edema. NEUROLOGICAL: Cranial nerves II through XII grossly intact. Normal speech, gait not observed. LABS Laboratory Results - last 24 hr 04/05/18 04/05/18 04/05/18 16:40 16:50 16:50 WBC 6.5 RBC 2.89 L Hgb 8.7 L Hct 26.4 L D MCV 91.2 MCH 30.0 MCHC 32.9 RDW 13.9 D Plt Count 283 MPV 8.0 Absolute Neuts (auto) 4.2 Neutrophils % 63.1 Lymphocytes % 25.2 Monocytes % 8.4 Eosinophils % 2.6 Basophils % 0.7 ESR Retic Count PT with INR 11.6 INR 1.04 PTT (Actin FS) 24.4 L Sodium Potassium Chloride Carbon Dioxide Anion Gap BUN Creatinine Creat Clearance w eGFR Random Glucose Calcium Magnesium Ferritin Total Bilirubin AST ALT Alkaline Phosphatase C-Reactive Protein Total Protein Albumin Stool Occult Blood Negative Blood Type Antibody Screen Crossmatch 04/05/18 04/05/18 04/05/18 16:50 16:50 17:00 WBC RBC Hgb Hct MCV MCH MCHC RDW Plt Count MPV Absolute Neuts (auto) Neutrophils % Lymphocytes % Monocytes % Eosinophils % Basophils % ESR Retic Count PT with INR INR PTT (Actin FS) Sodium 138 Potassium 3.9 Chloride 106 Carbon Dioxide 23 Anion Gap 9 BUN 22 H Creatinine 0.9 Creat Clearance w eGFR > 60 Random Glucose 102 Calcium 9.6 Magnesium Ferritin Total Bilirubin 0.7 AST 19 ALT 13 Alkaline Phosphatase 68 C-Reactive Protein Total Protein 6.3 L Albumin 4.1 Stool Occult Blood Blood Type B POSITIVE B POSITIVE Antibody Screen Negative Crossmatch See Detail 04/05/18 04/05/18 04/05/18 19:00 19:00 19:00 WBC 6.3 RBC 2.62 L Hgb 8.0 L Hct 23.9 L MCV 91.3 MCH 30.6 MCHC 33.5 RDW 14.3 Plt Count 278 MPV 8.0 Absolute Neuts (auto) Neutrophils % Lymphocytes % Monocytes % Eosinophils % Basophils % ESR 18 Retic Count PT with INR INR PTT (Actin FS) Sodium 138 Potassium 3.9 Chloride 107 Carbon Dioxide 21 Anion Gap 10 BUN 20 H Creatinine 0.9 Creat Clearance w eGFR > 60 Random Glucose 100 Calcium 9.2 Magnesium Ferritin Total Bilirubin 0.5 AST 20 ALT 13 Alkaline Phosphatase 67 C-Reactive Protein < 0.3 Total Protein 5.9 L Albumin 3.7 Stool Occult Blood Blood Type Antibody Screen Crossmatch 04/05/18 04/05/18 04/06/18 19:04 19:04 01:30 WBC 5.7 RBC 2.55 L Hgb 7.9 L Hct 22.9 L D MCV 90.0 MCH 31.0 MCHC 34.5 RDW 14.4 Plt Count 235 MPV 8.0 Absolute Neuts (auto) Neutrophils % Lymphocytes % Monocytes % Eosinophils % Basophils % ESR Retic Count 3.87 H PT with INR INR PTT (Actin FS) Sodium Potassium Chloride Carbon Dioxide Anion Gap BUN Creatinine Creat Clearance w eGFR Random Glucose Calcium Magnesium Ferritin 42.5 Total Bilirubin AST ALT Alkaline Phosphatase C-Reactive Protein Total Protein Albumin Stool Occult Blood Blood Type Antibody Screen Crossmatch 04/06/18 04/06/18 08:30 08:30 WBC 5.1 RBC 3.07 L Hgb 9.0 L Hct 27.9 L D MCV 90.8 MCH 29.2 MCHC 32.2 RDW 13.7 Plt Count 276 MPV 7.8 Absolute Neuts (auto) Neutrophils % Lymphocytes % Monocytes % Eosinophils % Basophils % ESR Retic Count PT with INR INR PTT (Actin FS) Sodium Potassium Chloride Carbon Dioxide Anion Gap BUN Creatinine Creat Clearance w eGFR Random Glucose Calcium Magnesium 2.1 Ferritin Total Bilirubin AST ALT Alkaline Phosphatase C-Reactive Protein Total Protein Albumin Stool Occult Blood Blood Type Antibody Screen Crossmatch HOSPITAL COURSE: Date of Admission:04/05/18 Date of Discharge: 04/06/18 Pre hospital course 72 year-old female with no significant PMH presented to the ED with a compaint of bleeding per rectum x 1 week, 3-4 episodes per day. About 4 days ago she developed palpitations, lightheadedness, and some SOB. She took some Pepto Bismol yesterday which turned her stool black. Prior to the the stool was brown and bloody. Patient admitted taking Alleve on a daily basis for chronic knee pain. ED course (1) Hgb 8.7-->7.9 (2) Transfused 1U PRBC Subsequent hospital course Following transfusion Hgb improved to 9.0. Dr. Ferrara performed EGD and colonoscopy. EGD was normal. Colonoscopy notable for a few diverticula in ascending and sigmoid regions. No active bleeding. Diagnosis: diverticular bleed, resolved. Patient discharged in good condition. Instructed to avoid ASA, NSAIDs. Minutes to complete discharge: 35 Discharge Summary Reason For Visit: GASTROINTESTINAL HEMORRHAGE Current Active Problems GI bleed (Acute) Condition: Improved - Instructions Diet, Activity, Other Instructions: Avoid all NSAIDS and aspirin-containing products. Take Tylenol if needed for pain and liit that to 4,000mg in a 24-hour period. Do not take Pepto Bismol. Return to the emergency department for any new or worsening symptoms. Referrals: Sara Pathak MD [Primary Care Provider] - Disposition: HOME - Home Medications Comprehensive Discharge Medication List: Ambulatory Orders FA/Mv,Ca,Iron,Min/Lycopene/Lut [Centrum Tablet] 1 each PO DAILY 07/17/14 Glucosamine/Chondr Whitt A Sod [Osteo Bi-Flex Caplet] 1 each PO DAILY 07/17/14 Vit C/Vit E/Lutein/Min/[place]-3 [Ocuvite Softgel] 1 each PO DAILY 02/09/16 Ascorbate Calcium [Vitamin C] 500 mg PO DAILY 04/05/18 This patient is new to me today: Yes Date on this admission: 04/06/18 Emergency Visit: Yes ED Registration Date: 04/05/18 Care time: The patient presented to the Emergency Department on the above date and was hospitalized for further evaluation of their emergent condition. Critical Care patient: No - Discharge Referral Referred to [facility] No
[2018-04-06 13:56] VITALS: BP 120/55
--- NOTE | 2018-04-06 15:50 | EKG ---
Test Reason : Blood Pressure : / mmHG Vent. Rate : 086 BPM Atrial Rate : 086 BPM P-R Int : 152 ms QRS Dur : 086 ms QT Int : 356 ms P-R-T Axes : 049 007 007 degrees QTc Int : 426 ms NORMAL SINUS RHYTHM NORMAL ECG WHEN COMPARED WITH ECG OF 31-OCT-2016 17:40, NO SIGNIFICANT CHANGE WAS FOUND Confirmed by Asa Kay ([id number]) on 04/06/2018 3:50:44 PM Referred By: [place] Confirmed By:Asa Kay
[2018-04-07 08:07] LABS: SERUM IRON SATURATION 8 % (15-55); TOTAL IRON BINDING CAPACITY 326 ug/dL (250-450); UIBC 301 ug/dL (118-369)
== END 2018-04-06 14:25 | disposition home or self-care (01) | DRG 378 ==
LOC: FER 15:50 → FM/S 18:07
PROVIDERS: ADMIT Internal Medicine; ATTEND Nurse Practitioner Acute Care
PROC: 0DJ08ZZ Inspection of Upper Intestinal Tract, Via Natural or Artificial Opening Endoscopic (ICD-10-PCS; 2018-04-06)
PROC: 0DJD8ZZ Inspection of Lower Intestinal Tract, Via Natural or Artificial Opening Endoscopic (ICD-10-PCS; 2018-04-06)
PROC: 30233N1 Transfusion of Nonautologous Red Blood Cells into Peripheral Vein, Percutaneous Approach (ICD-10-PCS; principal; 2018-04-06 11:52)
DX: K57.31 Diverticulosis of large intestine without perforation or abscess with bleeding (principal); D62 Acute posthemorrhagic anemia
CPT/HCPCS: 36415; 36430; 71045-TC-FY; 80053; 82272; 82728; 83540; 83550; 83735; 85025; 85027; 85044; 85610; 85651; 85730; 86140; 86850; 86900; 86901; 86922; 93005; 99285-25; P9038; P9058

== ENCOUNTER 2023-12-28 11:00 | Emergency (ER) | payer OTHER ==
[2023-12-28 11:21] VITALS: BP 138/77; PULSE 103; RESP 20; TEMP 98.8; BMI 24.7
[2023-12-28 13:10] LABS: HEMATOCRIT 39.6 % (32.4-45.2); HEMOGLOBIN 12.9 G/dL (10.7-15.3); MCH 30.2 pg (25.7-33.7); MCHC 32.6 g/dl (32.0-36.0); MEAN CELL VOLUME 92.6 fl (80-96); MEAN PLT VOLUME 8.4 fl (7.5-11.1); PLATELET COUNT 215.2 10^3/uL (134-434); RBC 4.28 10^6/uL (3.60-5.2); RDW 14.8 % (11.6-15.6)
[2023-12-28 13:41] LABS: ALBUMIN 4.5 g/dl (3.4-5.0); BILIRUBIN,TOTAL 0.4 mg/dl (0.2-1); CALCIUM 9.8 mg/dl (8.5-10.1); POTASSIUM 3.9 mmol/L (3.5-5.1); TOT PROT 6.8 g/dl (6.4-8.2)
[2023-12-28 15:55] LABS: ANISOCYTOSIS OCCASIONAL; OVALOCYTE OCCASIONAL; PLATELET ESTIMATE ADEQUATE
== END 2023-12-28 13:13 | disposition left against medical advice (07) ==
LOC: FER 11:00
DX: R26.81 Unsteadiness on feet (principal)
CPT/HCPCS: 36415; 70450-TC; 80053; 84484; 85025; 93005; 99285-25